=== PATIENT | male | born 1945 | race Caucasian/White ===

== ENCOUNTER 2021-05-28 08:51 | Observation (INO) | payer OTHER, BC ==
[2021-05-23 14:09] LABS: Absolute Lymphocytes (CBC) 1.5 K/uL (0.7-4.9); Lymphocytes % 24.4 % (15.3-44.8); MPV 8.1 fL (7.6-11.3); RBC Red Blood Cell Count 4.62 M/uL (4.33-5.43)
[2021-05-23 14:16] LABS: Protime INR 1.11
[2021-05-23 14:27] LABS: Potassium 4.1 mmol/L (3.5-5.1)
--- NOTE | 2021-05-23 14:32 | RAD REPORT ---
EXAM DESCRIPTION: RAD - Chest Pa And Lat (2 Views) - 05/23/2021 2:23 pm CLINICAL HISTORY: PRE PROCEDURAL SCREENING COMPARISON: None TECHNIQUE: Frontal and lateral views of the chest were obtained. FINDINGS: The lungs are clear of failure, infiltrate or mass. Interstitial markings are mildly promi nent in the lower lung garcia suspected the baseline. Trachea midline. Heart size is normal and cent ral vasculature is within normal limits. No pleural effusion or pneumothorax seen. No acute bony fi nding noted. No aortic abnormality. IMPRESSION: No acute cardiopulmonary process.
[2021-05-28] MEDS ORDERED: CEFAZOLIN/SWI 2gm 2 GM/20 ML SYR ONE (09:12)
[2021-05-28] MEDS ORDERED: Ringers Lactate 1,000 ML IV ONE ×2 (09:12→13:44)
[2021-05-28] MEDS ORDERED: propofoL 200 MG/20 ML VIAL IV ONE (09:45)
[2021-05-28] MEDS ORDERED: LIDOCAINE 2% MPF 5 ML VIAL ONE ×2 (09:45→10:15)
[2021-05-28] MEDS ORDERED: ACETAMINOPHEN 500 MG TAB ONE (10:06)
[2021-05-28] MEDS ORDERED: CELECOXIB 100 MG CAPSULE ONE (10:06)
[2021-05-28] MEDS ORDERED: dexAMETHasone 10 MG/ML VIAL ONE (10:15)
[2021-05-28] MEDS ORDERED: BUPIVACAINE 0.5% PF 10 ML VIAL ONE ×2 (10:16→10:19)
[2021-05-28] MEDS ORDERED: BUPIVACAINE 0.25% PF 10 ML VIAL ONE (10:17)
[2021-05-28] MEDS ORDERED: MIDAZOLAM HCL 2 MG/2 ML INJ ONE (10:18)
[2021-05-28] MEDS ORDERED: FENTANYL CITR 100 MCG/2 ML ONE (10:18)
[2021-05-28] MEDS ORDERED: ONDANSETRON 4 MG/2 ML VIAL ONE (10:57)
[2021-05-28] MEDS ORDERED: TRANEXAMIC ACID 1,000 MG in NA CHLORIDE 0.9% 50 ML IV SCH (11:15)
[2021-05-28] MEDS ORDERED: KETAMINE HCL 500 MG/5 ML VIAL ONE (11:17)
[2021-05-28] MEDS ORDERED: HYDROMORPHONE HCL 1 MG/ML INJ ONE (11:21)
[2021-05-28] MEDS ORDERED: EPHEDRINE SULF 50 MG/ML VIAL ONE (11:35)
--- NOTE | 2021-05-28 13:40 | P.BOP ---
Preoperative diagnosis: right knee osteoarthritis Postoperative diagnosis: same Primary procedure: right total knee arthroplasty Secondary procedure: same Building Dismantler: NONE,NONE Estimated blood loss: 30 cc Specimen: right knee bone remnants Findings: see dictation Anesthesia: General Complications: None Implants: Biomet Mackenzie Persona 12 CR femur, J tibia w/ stem, 32 patella, 10 CR poly Fluids & blood products: per anesthesia record: TT: 73 mins @ 300 mmHg Transferred to: Recovery Room Condition: Good
[2021-05-28] MEDS ORDERED: ONDANSETRON 4 MG/2 ML VIAL IV PRN (13:41)
[2021-05-28] MEDS ORDERED: DOCUSATE NA 100 MG CAP PO PRN (13:41)
[2021-05-28] MEDS ORDERED: TRAMADOL HCL 50 MG TAB PO PRN (13:44)
--- OUTSIDE RECORDS SUMMARY | 2021-05-28 14:24 | XMS REPORT | Continuity of Care Document ---
:1945 Author Organization [facility] t Address [address] [place] [address] Care Team Providers Name Role Phone David Attending Clinician Unavailable Catrachita Mejia Attending Clinician Unavailable Odell Hernandez Admitting Clinician Unavailable Payers Payer Name Policy Type Policy Number Effective Date Expiration Date S ource Problems This patient has no known problems. Allergies, Adverse Reactions, Alerts Allergy Allergy Status Severity Reaction(s) Onset Inactive Treating Comm ents Source Name Type Date Date Clinician No Known DA Active [facility] Contrast 12-21 [place] Allergie 00:00: [address] No Known DA Active [facility] Drug 12-21 [place] Allergie 00:00: [address] No Known DA Active [facility] Food 12-21 [place] Allergie 00:00: [address] No Known DA Active [facility] Other 12-21 [place] Allergie 00:00: [address] No Known DA Active [facility] Drug 12-20 [place] Intolera 00:00: [address] Medications Ordered Filled Start Stop Current Ordering Indication Dosage Frequency Signature Comments Components Source Medication Medication Date Date Medication? Clinician (SIG) Name Name Lisinopril Lisinopril Yes Sulaiman TAKE [address] [facility]T [facility] Tamsulosin Tamsulosin Yes Sulaiman TAKE [address] [facility] [address] HCl HCl [facility] CAPSULE [facility] Simvastatin Simvastatin Yes Sulaiman TAKE [address] [facility] TABLET [facility] ent Clinics Procedures This patient has no known procedures. Encounters Start End Encounter Admission Attending Care Care Encounter Source Date/Time Date/Time Type Type Clinicians Facility Department ID 2021-05-07 Outpatient [facility] 14:24:27 Jermaine [id number] [facility] 2021-05-07 Outpatient David STJOSÉ ANTONIOLC [facility] 14:14:23 Jermaine [id number] [facility] 2021-05-07 Outpatient David [facility] 12:07:42 Jermaine [id number] [facility] 2021-05-07 Outpatient David [facility] 11:02:37 Jermaine [id number] [facility] 2020-05-01 Inpatient DOYLE Mejia CARLOSWU LABO [id number] [facility] 12:00:00 Geoffrey [id number] [facility] 2021-05-26 2021-05-26 ambulatory [facility]LMLC [facility] [id number] [facility] 2021-04-24 2021-04-24 ambulatory [facility]LMLC [facility] [id number] [facility] 2021-04-01 2021-04-01 ambulatory STLMLC [facility] [id number] [facility] 2021-03-25 2021-03-25 ambulatory [facility]LMLC [facility] [id number] [facility] 2020-07-24 2020-07-24 Outpatient CARLOS AddisonWU SURG [id number] [facility] 09:18:[facility] 09:18:00 Geoffrey [id number] [facility] 2020-07-222020-07-22 Outpatient Pepper, HCA[facility] SURG [id number] [facility] 13:45:00 13:45:00 Geoffrey [id number] [facility] 2020-06-13 2020-06-13 Outpatient Pepper, [facility] [id number] [facility] 07:30:00 07:30:00 Geoffrey [id number] [facility] 2020-05-27 2020-05-27 Outpatient Pepper, [facility] [id number] [facility] 09:30:00 09:30:00 Geoffrey [id number] [facility] 2020-05-27 2020-05-27 Outpatient Pepper, [facility] [id number] [facility] 09:30:00 09:30:00 Geoffrey [id number] [facility] 2020-05-23 2020-05-23 Outpatient EL Jackie, [facility]CA[facility] LABO [id number] [facility] 13:12:00 13:12:00 Geoffrey [id number] [facility] 2020-04-30 2020-04-30 Outpatient Jackie, [facility] [id number] [facility] 12:00:00 12:00:00 Geoffrey [id number] [facility] 2020-04-29 2020-04-29 Outpatient EL Jackie, [facility]CA[facility] LABO [id number] [facility] 08:00:00 08:00:00 Geoffrey [id number] [facility] 2020-03-12 2020-03-12 Outpatient STLMLC [facility] [id number] [facility] 2020-03-05 2020-03-05 Outpatient STLMLC [facility] [id number] [facility]00 [facility] 2019-07-14 2019-07-14 [facility] [id number] 10:00:00 10:00:00 [facility] 2019-05-04 2019-05-04 [facility] [id number] 08:30:00 08:30:00 [facility] Clin[facility] Results Test Description Test Time Test Comments Results Result Comments Source COVID 19 Asymptomatic IH AG 2020-07-22 12:41:00 Test Item Value Reference Range Interpretation Comme nts COVID 19 Asymptomatic IH AG NEGATIVE Negative "Negative results from patients (test code = COVNONPUIAG) wi th symptom onset beyondfive days, should be conrad ashley as presumptive, andconfirmation with a molecular assay, if neces dev forpatient management may be performed. Negative result s do notrule out COVID-19 and sh ould not be used as the sole basisf or treatment or patient managem ent decisions, includinginfect ion control decisions. Nega tive results should beconsidered in the context of a patients recent exposures,history, and the presenc e of clinical signs and symptomscon sistent with COVID-19.This t est detects both viable andnon-v iable SARS-CoV and SARS CoV-2.Test performance dependson the a mount of virus (antigen) in th e sample." BASIC METABOLIC [id number] 06:08:00 Test Item Value Reference Range Interpretation Comments SODIUM (test code = 137 MMOL/L 137-145 N NA) POTASSIUM (test code = 3.9 MMOL/L 3.5-5.1 N K) CHLORIDE (test code = 107 MMOL/L 98-107 N CL) CARBON DIOXIDE (test 22 MMOL/L 22-30 N code = CO2) ANION GAP (test code = 12 MMOL/L 14-24 L GAP) GLUCOSE (test code = 166 MG/DL 74-106 H GLU) BLOOD UREA NITROGEN 21 MG/DL 9-20 H (test code = BUN) GLOMERULAR FILTRATION > 60 Report ing units: RATE (test code = GFR) ml/mi n/1.73 m2 (Modified MDRD Formula)Referen ce Range: > or = 6 0 ml/min/1.73 m2 CREATININE (test code 1.00 MG/DL 0.66-1.25 N = CREAT) CALCIUM (test code = 7.9 MG/DL 8.4-10.2 L CA) CBC W/AUTO [id number] 05:46:00 Test Item Value Reference Range Interpretation Comments WHITE BLOOD CELL (test code = 10.8 K/MM3 3.8-9.8 H WBC) RED BLOOD CELL (test code = 3.81 M/MM3 3.95-5.67 L RBC) HEMOGLOBIN (test code = HGB) 11.2 G/DL 12.4-16.7 L HEMATOCRIT (test code = HCT) 35.5 % 35.9-49.5 L MEAN CELL VOLUME (test code = 93 fL 81.7-96.1 N MCV) MEAN CELL HGB (test code = MCH) 29.4 pg 27.6-33.2 N MEAN CELL HGB CONCETRATION 31.5 % 32.9-35.5 L (test code = MCHC) RED CELL DISTRIBUTION WIDTH 12.3 % 12.1-15.2 N (test code = RDW) PLATELET COUNT (test code = 71 K/MM3 129-368 L PLT) MEAN PLATELET VOLUME (test code 11.4 fl 7.4-10.4 H = MPV) NEUTROPHIL % (test code = NT%) 87.2 % 43-75 H IMMATURE GRANULOCYTE % (test 0.6 % 0.0-2.0 N code = IG%) LYMPHOCYTE % (test code = LY%) 7.8 % 14-44 L MONOCYTE % (test code = MO%) 4.3 % 4-13 N EOSINOPHIL % (test code = EO%) 0.0 % 0-6 N BASOPHIL % (test code = BA%) 0.1 % 0-2 N NUCLEATED RBC % (test code = 0.0 % 0-1.0 N NRBC%) NEUTROPHIL # (test code = NT#) 9.38 K/mm3 2.0-7.6 H IMMATURE GRANULOCYTE # (test 0.06 x10 3/uL 0-0.03 H code = IG#) LYMPHOCYTE # (test code = LY#) 0.84 K/mm3 1.0-3.8 L MONOCYTE # (test code = MO#) 0.46 K/mm3 0.1-0.8 N EOSINOPHIL # (test code = EO#) 0.00 K/mm3 0.0-0.2 N BASOPHIL # (test code = BA#) 0.01 K/mm3 0.0-0.2 N NUCLEATED RBC # (test code = 0.00 K/mm3 0.0-0.1 N NRBC#) [id number] 17:06:00 Test Item Value Reference Range Interpretation Comments ACT-ISTAT (test code = ACTI) 329 SEC 74-137 H [id number] 16:39:00 Test Item Value Reference Range Interpretation Comments ACT-ISTAT (test code = ACTI) 290 SEC 74-137 H [id number] 16:17:00 Test Item Value Reference Range Interpretation Comments ACT-ISTAT (test code = ACTI) 312 SEC 74-137 H [id number] 15:54:00 Test Item Value Reference Range Interpretation Comments ACT-ISTAT (test code = ACTI) 290 SEC 74-137 H [id number] 15:33:00 Test Item Value Reference Range Interpretation Comments ACT-ISTAT (test code = ACTI) 301 SEC 74-137 H [id number] 15:11:00 Test Item Value Reference Range Interpretation Comments ACT-ISTAT (test code = ACTI) 312 SEC 74-137 H [id number] 14:47:00 Test Item Value Reference Range Interpretation Comments ACT-ISTAT (test code = ACTI) 230 SEC 74-137 H [id number] 14:17:00 Test Item Value Reference Range Interpretation Comments ACT-ISTAT (test code = ACTI) 241 SEC 74-137 H BASIC METABOLIC [id number] 10:40:00 Test Item Value Reference Range Interpretation Comments SODIUM (test code = 141 MMOL/L 137-145 N NA) POTASSIUM (test code = 4.0 MMOL/L 3.5-5.1 N K) CHLORIDE (test code = 104 MMOL/L 98-107 N CL) CARBON DIOXIDE (test 31 MMOL/L 22-30 H code = CO2) GLUCOSE (test code = 86 MG/DL 74-106 N GLU) BLOOD UREA NITROGEN 22 MG/DL 9-20 H (test code = BUN) GLOMERULAR FILTRATION > 60 Report ing units: RATE (test code = GFR) ml/mi n/1.73 m2 (Modified MDRD Formula)Referen ce Range: > or = 6 0 ml/min/1.73 m2 CREATININE (test code 1.10 MG/DL 0.66-1.25 N = CREAT) CALCIUM (test code = 9.4 MG/DL 8.4-10.2 N CA) [id number] 10:40:00 Test Item Value Reference Range Interpretation Comments MAGNESIUM (test code = MAG) 2.1 MG/DL 1.6-2.3 N PROTHROMBIN [id number] 10:26:00 Test Item Value Reference Range Interpretation Comments PROTHROMBIN TIME PATIENT 12.0 9.5-12.7 N (test code = PTP) INTERNATIONAL NORMAL RATIO 1.1 0.86-1.14 N T he INR is to be used (test code = INR) only for m onitoring oral anticoagulantth erapy. INDICATION INR VALUE ------- ------- -----1. Prophylaxis, d eep venous thrombos is, including high risk surgery. 2.0 - 3.0 2. Prophylaxis, de ep venous thrombos is, hip surgery, tr eatment for deep venous thrombosis or pulmonary preve ntion of systemic embolism in pat ients with valvula r heart disease, atrial fibrillation, tissue heart va lve, or acute myocardia l infarction. 2.0 - 3.0 3. Mechanical pros thesis heart valves, recurrent syste abby embolism. 3.0 - 4.5 PTT [id number] 10:26:00 Test Item Value Reference Range Interpretation Comments PTT ACTIVATED (test code = APTT) 34.4 SECONDS 25.1-36.5 N CBC W/AUTO [id number] 10:15:00 Test Item Value Reference Range Interpretation Comments WHITE BLOOD CELL (test code = 6.7 K/MM3 3.8-9.8 N WBC) RED BLOOD CELL (test code = 4.94 M/MM3 3.95-5.67 N RBC) HEMOGLOBIN (test code = HGB) 14.5 G/DL 12.4-16.7 N HEMATOCRIT (test code = HCT) 45.3 % 35.9-49.5 N MEAN CELL VOLUME (test code = 92 fL 81.7-96.1 N MCV) MEAN CELL HGB (test code = MCH) 29.4 pg 27.6-33.2 N MEAN CELL HGB CONCETRATION 32.0 % 32.9-35.5 L (test code = MCHC) RED CELL DISTRIBUTION WIDTH 12.0 % 12.1-15.2 L (test code = RDW) PLATELET COUNT (test code = 98 K/MM3 129-368 L PLT) MEAN PLATELET VOLUME (test code 10.7 fl 7.4-10.4 H = MPV) NEUTROPHIL % (test code = NT%) 67.6 % 43-75 N IMMATURE GRANULOCYTE % (test 0.4 % 0.0-2.0 N code = IG%) LYMPHOCYTE % (test code = LY%) 22.1 % 14-44 N MONOCYTE % (test code = MO%) 7.0 % 4-13 N EOSINOPHIL % (test code = EO%) 2.5 % 0-6 N BASOPHIL % (test code = BA%) 0.4 % 0-2 N NUCLEATED RBC % (test code = 0.0 % 0-1.0 N NRBC%) NEUTROPHIL # (test code = NT#) 4.52 K/mm3 2.0-7.6 N IMMATURE GRANULOCYTE # (test 0.03 x10 3/uL 0-0.03 N code = IG#) LYMPHOCYTE # (test code = LY#) 1.48 K/mm3 1.0-3.8 N MONOCYTE # (test code = MO#) 0.47 K/mm3 0.1-0.8 N EOSINOPHIL # (test code = EO#) 0.17 K/mm3 0.0-0.2 N BASOPHIL # (test code = BA#) 0.03 K/mm3 0.0-0.2 N NUCLEATED RBC # (test code = 0.00 K/mm3 0.0-0.1 N NRBC#) COVID 19 Asymptomatic IH [id number] 11:07:00 Test Item Value Reference Range Interpretation Comments COVID 19 NEGATIVE Negative "Negative resul ts from Asymptomatic IH AG patients with symptom (test code = onset beyondfiv e days, COVNONPUIAG) should be conrad ashley as presumptive, andconfirmation with a molecular assay , if necessary forpa tient management may be performed. Nega tive results do notr ule out COVID-19 and sh ould not be used as the sole basisfor treatm ent or patient managem ent decisions, includinginfect ion control decisio ns. Negative result s should beconsidered in the context of a pa tients recent exposure s,history, and the presenc e of clinical signs and symptomsconsist ent with COVID-19.This t est detects both vi able andnon-viable S ARS-CoV and SARS CoV-2. Test performance dep endson the amount of virus (antigen) in the sample." Novel Coronavirus 2019 [id number] 14:38:00 Test Item Value Reference Range Interpretation Comments Novel Coronavirus Not Detected Not Detected Testing wa s performed 2019 Inhouse (test using the Aptima code = COVNONPUI) SARS-CoV-2 assay.This nucleic acid amplification t est was developed and itsperformance characteristics determined by [facility]. Nucleic acid amplification t ests include RT-PCR and TMA. This test has n ot been FDA cleared ora pproved. This test has b een authorized by F DA under anEmergency Use Authorization ( EUA). This test is onlyauthorized for the duration of isaac e the declaration thatcircumstanc es exist justifying the authorization o f theemergency us e of in vitro diagnosti c tests for detection [id number] vi mayito and/or diagnosi s of COVID-19 infect ionunder section 564(b)( 1) of the Act, 21 U.S .C. 360bbb-3(b)(1), unless the authorizati on is terminated or revokedsooner.W hen diagnostic test ing is negative, the possibility of afalse negative result should be considered i n the contextof a pat ient's recent exposure s and the presence of clinical signs and sympt oms consistent with COVID-19. Anind ividual without symptom s of COVID-19 and wh o is notshedding ARCENIO S-CoV-2 virus would exp ect to have a negative (not detected) resul t in this assay.Perf ormed At: [facility] [id number] [place], [place] [id number] Kyle L MD Ph:[phone] Is this a LINE draw? NCOVID 19 Asymptomatic IH [id number] 13:48:00 Test Item Value Reference Range Interpretation Comments COVID 19 NEGATIVE Negative "Negative resul ts from Asymptomatic IH AG patients with symptom (test code = onset beyondfiv e days, COVNONPUIAG) should be conrad ashley as presumptive, andconfirmation with a molecular assay , if necessary forpa tient management may be performed. Nega tive results do notr ule out COVID-19 and sh ould not be used as the sole basisfor treatm ent or patient managem ent decisions, includinginfect ion control decisio ns. Negative result s should beconsidered in the context of a pa tients recent exposure s,history, and the presenc e of clinical signs and symptomsconsist ent with COVID-19.This t est detects both vi able andnon-viable S ARS-CoV and SARS CoV-2. Test performance dep endson the amount of virus (antigen) in the sample."
[2021-05-28 14:27] LABS: Hematocrit 36.3 % (39.6-49.0)
[2021-05-28] MEDS: HYDROMORPHONE HCL 1 MG/ML INJ ONE ×2 (14:34→14:39)
--- NOTE | 2021-05-28 14:50 | RAD REPORT ---
EXAM DESCRIPTION: RAD - Knee Right 2 View - 05/28/2021 2:38 pm CLINICAL HISTORY: Post Op COMPARISON: No comparisons FINDINGS: No acute fracture. No malalignment. No significant focal degenerative changes. Status post right total knee arthroplasty. Small volume of fluid and gas within the joint which is not unexpecte d. Intra-articular bodies noted in the posterior joint space. IMPRESSION: Status post right total knee arthroplasty. No evidence of immediate hardware complicatio ns. No fracture.
[2021-05-28] MEDS: CEFAZOLIN/SWI 2gm 2 GM/20 ML SYR IV SCH (17:10)
[2021-05-28 17:45] VITALS: BMI 28.5
[2021-05-28] MEDS: MORPHINE 2 MG/ML SYR IV PRN ×2 (18:08→22:52)
--- NOTE | 2021-05-28 18:35 | P.OP ---
Preoperative diagnosis: right knee osteoarthritis Postoperative diagnosis: same Primary procedure: right total knee arthroplasty Secondary procedure: same Anesthesia: general Estimated blood loss: 30 cc Specimen: right knee bone remnants Findings: see dictation Operative Technique: Indication For Procedure: Prashanth is a 76 year-old male presenting to my clinic with signs, symptoms and x-ray findings consistent with severe right knee osteoarthritis. I discussed with the patient at length risks and benefits associated with operative and nonoperative treatment. He had failed conservative treatment measures and had significant difficulties with ADLs secondary to his pain. We discussed operative treatment and elected to proceed with right total knee arthroplasty. He expressed understanding and elected to proceed with operative treatment. Description Of Procedure: After informed consent was obtained, the patient was identified in the preoperative holding area. The right lower extremity was marked. The patient was then taken to the PACU where he underwent a right lower extremity adductor canal block performed by Anesthesia. He was then taken to the operating room, transferred to the operating table in supine fashion, and placed under general anesthesia. The right lower extremity was then prepped and draped in usual sterile fashion. A time-out was initiated. The correct patient and procedure were confirmed and identified. The patient did receive his preoperative prophylactic antibiotics. The right lower extremity was then exsanguinated and tourniquet was inflated to 300 mmHg. Approximately 15 cm longitudinal incision was made centered over the anterior aspect of the right knee. Dissection was then taken to the extensor mechanism and a medial parapatellar arthrotomy was performed. The patella was everted and dislocated laterally and the knee was flexed in the fat pad. Medial lateral meniscus and ACL were all excised exposing the distal femur. Excess hypertrophic synovium was also excised within the suprapatellar pouch. The patient had an MRI of her right knee preoperatively for surgical planning and creation of cutting blocks. The cutting block was then placed over the distal femur and pins were then placed. The distal femoral cutting block was then placed over the pins. Knee joint was then used to ensure proper depth cut and the distal femur was then cut. The chamfer cutting guide was then placed over the distal end of the femur. Anterior, posterior cuts as well as anterior and posterior chamfer cuts were then made again confirming proper depth of the cut using an Jose wing. Excess bone remnants were then sent to pathology for further evaluation. Next, attention was taken to the proximal tibia. A tibial jig and tibial cutting block was then placed on proximal aspect of the right tibia and locked into position. Pins were then placed and alignment guide was then used to confirm proper alignment of the cut and then coronal and sagittal planes. Once this was confirmed, the cutting jig was placed over the pins and the proximal tibia was cut. Sizing trays were then selected and size 10 mm spacer was used and there was good overall balance in flexion and extension. Next, the trial implants were then placed using the size 12 standard CR femur and a size J tibia with stem and an 10 mm CR poly. There was overall good range of motion and good stability. The trial implants were then removed. This improved the overall stability of the knee and components. The wound was then irrigated thoroughly with normal saline and the knee was then injected with 30 cc of 0.5% Marcaine both in the posterior capsule and mediallateral gutters as well as quadriceps tendon and periosteum. The tibia was then punched. The femur was drilled. The cement was then prepared on the back table. Cement was then placed first on the tibial surface followed by size J tibia with stem given his tall stature and increased stresses placed on the implants. Excess cement was removed with [place] elevators. Size 12 standard CR femur was then placed on the distal femur after cement was placed on the distal femur. Excess cement was then removed and a size 10 mm CR trial poly was then placed. The knee was held in extension as the cement hardened. Undersurface of the patella was prepared debriding osteophytes using rongeurs as well as osteophytes.. Cement was placed on the undersurface of the patella after it was cut and a size 32 patella was placed. Once the cement was hardened, the knee was ranged, there was good overall stability both in flexion, extension and as well as stability with varus and valgus stresses. Trial poly was then removed and a size 10 mm CR poly was then placed and locked into position. The knee was then ranged again. There was good overall range of motion both for flexion and extension with good stability. The wound was then irrigated again thoroughly with normal saline using pulse lavage. Tourniquet was let down. Hemostasis was achieved using Bovie electrocautery. Extensor mechanism was then approximated using a #1 Vicryl both in interrupted and running fashion. The fascia was then approximated using 0 Vicryl. Subcutaneous tissue was approximated with a 2-0 Vicryl. Skin was approximated using malena. Sterile dressings were applied. The patient was awakened and transferred back in stable condition Complications: None Implants: Biomet Mackenzie Persona, 12 CR femur, J tibia w/ stem, 32 patella, 10 CR poly Fluids & blood products: per anesthesia record; TT: 73 mins @ 300 mmHg Transferred to: Recovery Room Condition: Good
[2021-05-28] MEDS: HYDROCODONE/APAP 7.5/325 MG TAB PO PRN (20:57)
[2021-05-28] MEDS ORDERED: TAMSULOSIN 0.4 MG SR CAP PO SCH (21:00)
[2021-05-28] MEDS ORDERED: AMIODARONE HCL 200 MG TAB PO SCH (21:00)
[2021-05-28] MEDS ORDERED: AMLODIPINE 2.5 MG TAB PO SCH (21:00)
[2021-05-28] MEDS ORDERED: HOME MED 1 EA UNK (Simvastatin [Simvastatin] 40 MG Tablet) PO SCH (21:00)
[2021-05-28] MEDS ORDERED: ATORVASTATIN 20 MG TAB PO SCH (21:00)
[2021-05-28] MEDS ORDERED: FAMOTIDINE 20 MG TAB PO SCH (21:00)
[2021-05-28] MEDS ORDERED: lisinopriL 10 MG TAB PO SCH (21:00)
[2021-05-29] MEDS: CEFAZOLIN/SWI 2gm 2 GM/20 ML SYR IV SCH ×2 (01:10→09:07)
[2021-05-29] MEDS: HYDROCODONE/APAP 7.5/325 MG TAB PO PRN ×2 (01:11→11:49)
[2021-05-29] MEDS: MORPHINE 2 MG/ML SYR IV PRN ×2 (03:43→09:08)
[2021-05-29 05:48] LABS: Hematocrit 33.8 % (39.6-49.0)
[2021-05-29] MEDS ORDERED: ENOXAPARIN 30 MG/0.3 ML SQ SCH (06:00)
[2021-05-29] MEDS ORDERED: CELECOXIB 100 MG CAPSULE PO SCH (09:00)
[2021-05-29 11:27] VITALS: O2SAT 100
[2021-05-29 13:23] VITALS: BP 118/53; TEMP 98.5
[2021-05-29] MEDS ORDERED: RIVAROXABAN 15 MG TABLET PO SCH (21:00)
== END 2021-05-29 13:57 | disposition home health service (06) ==
LOC: OR 08:51 → 2ND 13:41
PROVIDERS: ADMIT Orthopaedic Surgery Sports Medicine; ATTEND Orthopaedic Surgery Sports Medicine
PROC: 0SRC069 Replacement of Right Knee Joint with Oxidized Zirconium on Polyethylene Synthetic Substitute, Cemented, Open Approach (ICD-10-PCS; principal; 2021-05-28 10:45)
DX: M17.11 Unilateral primary osteoarthritis, right knee (principal); I48.91 Unspecified atrial fibrillation; I10 Essential (primary) hypertension; Z79.01 Long term (current) use of anticoagulants; Z79.899 Other long term (current) drug therapy; Z96.642 Presence of left artificial hip joint; Z87.891 Personal history of nicotine dependence; Z20.822 Contact with and (suspected) exposure to COVID-19; Z82.49 Family history of ischemic heart disease and other diseases of the circulatory system
CPT/HCPCS: 93005 ×2; 85025; 80048; 36415 ×3; 85610; 88304; 88311; 85730; 85018 ×2; 85014 ×2; 71046; 73560; 97110 ×2; 97116; 97139 ×2; 97161; 97530; 94010; 27447; U0002; J2704; J1650; J2250; J3010; J1100; J2270 ×4; J1170 ×2; J0690 ×2; J7120 ×2; J2405; G0379; G0378 ×2; 88305

== ENCOUNTER 2023-11-17 05:58 | Observation (INO) | payer OTHER, BC ==
[2023-11-12 11:21] LABS: Absolute Monocytes 0.5 K/uL (0.1-1.3); Absolute Neutrophil 4.2 K/uL (1.8-8.0); Basophils % 0.5 % (0-1.3); Eosinophils % 0.8 % (0-4.4); Hematocrit 41.3 % (39.6-49.0); Hemoglobin 13.3 g/dL (13.6-17.9); Lymphocytes % 16.9 % (15.3-44.8); MCHC 32.2 g/dL (32.0-36.0); MPV 8.7 fL (7.6-11.3); Monocytes % 8.4 % (3.3-12.3); Neutrophils % 73.4 % (41.7-73.7); Platelets 137 thou/uL (152-406); RBC Red Blood Cell Count 4.74 M/uL (4.33-5.43); Red Cell Distribution Width 14.8 % (12.1-15.2)
[2023-11-12 11:35] LABS: Anion Gap 7.2 mEq/L (5.0-15.0); Potassium 4.2 mEq/L (3.5-5.1)
--- NOTE | 2023-11-12 11:37 | RAD REPORT ---
EXAM DESCRIPTION: RAD - Chest Pa And Lat (2 Views) - 11/12/2023 11:32 am CLINICAL HISTORY: pre op pending knee arthroplasty Chest pain. COMPARISON: Chest Pa And Lat (2 Views) dated 05/23/2021 FINDINGS: The lungs are clear. The heart is normal in size. No displaced fractures. IMPRESSION: No acute or concerning finding suspected.
[2023-11-12 11:39] LABS: PT Prothrombin Time 18.3 SECONDS (9.4-12.5); PTT, Activated Partial Thromb 49.7 SECONDS (24.3-36.9); Protime INR 1.66
--- NOTE | 2023-11-12 13:29 | EKG ---
Test Date: 2023-11-12 Test Time: 11:05:39 Research Project Coordinator: INEZ MEASUREMENT RESULTS: Intervals: Rate: 63 CA: 192 QRSD: 100 QT: 460 QTc: 470 [place]: P: 74 CA: 192 QRS: 96 T: 97 INTERPRETIVE STATEMENTS: Sinus rhythm with frequent premature ventricular complexes Rightward axis ST abnormality, possible digitalis effect Abnormal ECG Compared to ECG 05/23/2021 14:13:36 Ventricular premature complex(es) now present ST (T wave) deviation now present Sinus bradycardia no longer present First degree AV block no longer present Electronically Signed On 11-12-23 13:28:33 CDT by Alvaro López
[2023-11-17] MEDS: Ringers Lactate 1,000 ML IV ONE ×2 (06:22→08:50)
[2023-11-17] MEDS: GABAPENTIN 100 MG CAP ONE (06:23)
[2023-11-17] MEDS: Oxycodone HCl/Acetaminophen 5/325 MG TAB ONE (06:23)
[2023-11-17] MEDS: ACETAMINOPHEN 500 MG TAB ONE (06:23)
[2023-11-17] MEDS ORDERED: LIDOCAINE 2% MPF 5 ML VIAL ONE (06:25)
[2023-11-17] MEDS ORDERED: KETAMINE HCL IN 0.9 % NACL 50 MG/5 ML SYRINGE IV ONE (06:25)
[2023-11-17] MEDS ORDERED: propofoL 200 MG/20 ML VIAL IV ONE (06:25)
[2023-11-17] MEDS ORDERED: FENTANYL CITR 100 MCG/2 ML ONE (06:25)
[2023-11-17] MEDS ORDERED: MIDAZOLAM HCL 2 MG/2 ML INJ ONE (06:25)
[2023-11-17] MEDS: EPINEPHRINE 1 MG/ML VIAL ONE (06:36)
[2023-11-17] MEDS: dexAMETHasone 4 MG/ML VIAL ONE (06:36)
[2023-11-17] MEDS: LIDOCAINE 1% MPF 5 ML VIAL ONE (06:36)
[2023-11-17] MEDS: BUPIVACAINE 0.25% PF 30 ML VIAL ONE (06:37)
[2023-11-17] MEDS: MAGNESIUM SULFATE 1 gm IVPB 1 GM/100 ML BAG IV ONE (06:37)
[2023-11-17] MEDS: DEXMEDETOMIDINE HCL 200 MCG/2 ML VIAL ONE (07:30)
[2023-11-17] MEDS: TRANEXAMIC ACID 1,000 MG/10 ML VIAL IV ONE (07:39)
[2023-11-17] MEDS ORDERED: EPHEDRINE SULF 50 MG/ML VIAL ONE (08:06)
[2023-11-17] MEDS: CEFAZOLIN SODIUM 2 GM/VIAL ONE (08:15)
[2023-11-17] MEDS ORDERED: Phenylephrine HCl 10 MG/ML 1 ML VIAL ONE (10:10)
[2023-11-17] MEDS ORDERED: HOME MED 1 EA UNK (Omeprazole [Omeprazole] 20 MG Tab.Rap.Dr) PO PRN (10:45)
--- NOTE | 2023-11-17 10:45 | P.BOP ---
Preoperative diagnosis: Left knee osteoarthritis Postoperative diagnosis: Same Primary procedure: Left total knee arthroplasty Tavern Keeper: NONE,NONE Estimated blood loss: 50 cc Specimen: Left knee bone remnants Findings: See dictation Anesthesia: General Complications: None Implants: Biomet Mackenzie persona 12 CR femur, J tibia, 10 CR poly, 32 patella Fluids & blood products: Per anesthesia record; TT: 86 minutes at 300 mmHg Transferred to: Recovery Room Condition: Good
[2023-11-17] MEDS ORDERED: ACETAMINOPHEN 325 MG TABLET PO PRN (10:47)
[2023-11-17] MEDS ORDERED: DOCUSATE NA 100 MG CAP PO PRN (10:47)
[2023-11-17] MEDS ORDERED: ONDANSETRON 4 MG/2 ML VIAL IV PRN (10:47)
--- NOTE | 2023-11-17 11:22 | RAD REPORT ---
EXAM DESCRIPTION: RAD - Knee Left 2 View - 11/17/2023 11:14 am CLINICAL HISTORY: Post Op Pain and swelling COMPARISON: No comparisons FINDINGS: Left total knee arthroplasty has been performed. No unexpected immediate postoperative fin ding. Small amount of air in the joint space. Skin malena noted.
[2023-11-17 11:32] LABS: Hematocrit 35.2 % (39.6-49.0); Hemoglobin 11.6 g/dL (13.6-17.9)
[2023-11-17] MEDS: HYDROCODONE/APAP 7.5/325 MG TAB PO PRN (13:53)
[2023-11-17 14:20] VITALS: BMI 26.3
[2023-11-17] MEDS: CEFAZOLIN SODIUM 2 GM in NA CHLORIDE 0.9% 100 ML IVPB SCH (16:47)
[2023-11-17] MEDS: lisinopriL 10 MG TAB PO SCH (21:50)
[2023-11-17] MEDS: AMIODARONE HCL 200 MG TAB PO SCH (21:50)
[2023-11-17] MEDS: ROSUVASTATIN 10 MG TAB PO SCH (21:51)
[2023-11-17] MEDS: FAMOTIDINE 20 MG TAB PO SCH (21:51)
[2023-11-17] MEDS: TAMSULOSIN 0.4 MG SR CAP PO SCH (21:51)
[2023-11-17] MEDS: AMLODIPINE 2.5 MG TAB PO SCH (21:51)
[2023-11-18] MEDS: TRAMADOL HCL 50 MG TAB PO PRN (02:55)
[2023-11-18] MEDS: LEVOTHYROXINE SOD 0.025 MG TAB PO SCH (05:58)
[2023-11-18 06:53] LABS: Hematocrit 32.1 % (39.6-49.0); Hemoglobin 10.7 g/dL (13.6-17.9)
[2023-11-18] MEDS: CELECOXIB 100 MG CAPSULE PO SCH (09:27)
[2023-11-18] MEDS: RIVAROXABAN 10 MG TABLET PO SCH (09:27)
[2023-11-18 12:23] VITALS: BP 151/54; TEMP 98.7
[2023-11-18 12:32] VITALS: O2SAT 98
== END 2023-11-18 12:55 | disposition home health service (06) ==
LOC: OR 05:58 → 2ND 10:47
PROVIDERS: ADMIT Orthopaedic Surgery Sports Medicine; ATTEND Orthopaedic Surgery Sports Medicine
PROC: 0SRD0J9 Replacement of Left Knee Joint with Synthetic Substitute, Cemented, Open Approach (ICD-10-PCS; principal; 2023-11-17 08:00)
DX: M17.12 Unilateral primary osteoarthritis, left knee (principal)
CPT/HCPCS: 93005; 85025; 80048; 36415 ×3; 85610; 88305; 88311; 85730; 85018 ×2; 85014 ×2; 71046; 73560; 97110 ×2; 97116 ×2; 97139; 97161; 97530 ×3; 94010; 27447; C1776 ×2; J3475; J2704; J1100; J2001 ×2; J2371; J2250; J3010; J0171; J7120 ×2; 88304; G0378; G0379